=== PATIENT | female | born 1950 | race Caucasian/White ===

== ENCOUNTER → 2024-08-18 | Outpatient (CLI) | payer MEDICARE, SELFPAY ==
--- NOTE | 2024-08-18 10:30 | XR_ITS ---
Examination: Screening digital mammography, bilateral Computer aided detection 3-D breast Tomosynthesis, bilateral Date and time of exam: August 18, 2024 1010 hours Compared to mammograms dating to September 04, 2019 Indication: Screening Technique: Nonmagnified MLO, CC views of the breasts to been obtained, reconstructed from 3-D Tomosynthesis images. R2 computer aided detection program utilized for evaluation of suspicious masses and/or abnormal calcifications. 3-D Tomosynthesis images obtained. Findings: Scattered areas of fibroglandular density. Extensive scar formation surgical clips and calcifications stable left breast consistent with patient's history treated left breast cancer However, calcifications adjacent to the surgical clips in the upper outer left breast appear more numerous compared to 2020 Impression: BI-RADS Category 0: Incomplete: Need additional imaging evaluation Recommend follow-up magnification spot compression views of microcalcifications upper outer left breast as well as left breast sonography to complete the workup
[2024-08-18 10:47] LABS: Basophils # (Auto) 0.1 Thou/mm3 (0.0-0.2); Basophils % (Auto) 1 % (0-2.5); Eosinophils # (Auto) 0.2 Thou/mm3 (0.0-0.5); Eosinophils % (Auto) 3 % (0-10); Hematocrit 40.2 % (36.0-46.0); Hemoglobin 13.3 g/dL (12.0-16.0); Immature Granulocytes % (Auto) 1 % (0-0); Immature Granulocytes Auto 0.04 Thou/mm3 (0.00-0.00); Lymphocytes # (Auto) 1.6 Thou/mm3 (1.0-4.8); Lymphocytes % (Auto) 24 % (10-50); Mean Corpuscular HGB Conc 33.1 g/dl (31.0-37.0); Mean Corpuscular Hemoglobin 30.9 pg (25.0-35.0); Mean Corpuscular Volume 94 fL (80-100); Monocytes # (Auto) 0.5 Thou/mm3 (0.0-0.8); Monocytes % (Auto) 7 % (0-12); Neutrophils # (Auto) 4.3 Thou/mm3 (1.8-7.7); Neutrophils % (Auto) 65 % (37-80); Nucleated Red Blood Cell % 0 /100 WBC (0); Platelet Count 264 Thou/mm3 (140-440); RDW Standard Deviation 44.7 fL (36.4-46.3); White Blood Count 6.7 Thou/mm3 (3.6-11.0)
[2024-08-18 11:00] LABS: Alanine Aminotransferase 15 U/L (10-49); Albumin, Serum 4.3 gm/dL (3.4-4.8); Albumin/Globulin Ratio 1.9 (1.2-2.2); Alkaline Phosphatase 59 U/L (46-116); Anion Gap 5 (7-16); Aspartate Amino Transferase 17 U/L (0-34); BUN/Creatinine Ratio 11 Ratio (12-20); Bilirubin,Total 0.7 mg/dL (0.3-1.2); Blood Urea Nitrogen 11 mg/dL (9-23); Calcium 10.4 mg/dL (8.3-10.6); Calcium (Corrected) 10.4 mg/dL (8.5-10.1); Carbon Dioxide 31.6 mMol/L (20.0-31.0); Chloride 105 mMol/L (98-107); Globulin 2.3 gm/dL (2.3-3.5); Glucose 105 mg/dL (74-106); Osmolality,Calculated 282 (275-295); Potassium 4.5 mMol/L (3.4-5.1); Sodium 142 mMol/L (136-145); Total Protein 6.6 gm/dL (5.7-8.2); eGFR 59 See Note
[2024-08-18 11:23] LABS: CA 15-3 7.1 U/mL (<32.4); Carcinoembryonic Antigen 2.6 ng/mL (0.0-5.0)
== END | disposition home or self-care (01) ==
LOC: CDIM 10:06 → COPL 10:18
PROVIDERS: Referring Provider Nurse Practitioner Family; Visit Provider Specialist
DX: Z12.31 Encounter for screening mammogram for malignant neoplasm of breast (principal); R92.8 Other abnormal and inconclusive findings on diagnostic imaging of breast; C50.412 Malignant neoplasm of upper-outer quadrant of left female breast
CPT/HCPCS: 36415; 77063; 77067; 80053; 82378; 85025; 86300

== ENCOUNTER → 2024-08-19 | Outpatient (CLI) | payer MEDICARE, SELFPAY ==
--- NOTE | 2024-08-19 13:08 | XR_ITS ---
Examination: Diagnostic digital mammography, unilateral, left Computer aided detection 3-D breast Tomosynthesis, unilateral Date and time of exam: August 19, 2024 1334 hours INDICATIONS: Mammogram August 18, 2024 grouped microcalcifications upper outer left breast Technique: Nonmagnified MLO, CC views of the left breast have been obtained, reconstructed from 3-D Tomosynthesis images. R2 computer aided detection program utilized for evaluation of suspicious masses and/or abnormal calcifications. 3-D Tomosynthesis images obtained. Findings: Scattered areas of fibroglandular density Probably benign calcifications upper outer left breast adjacent to surgical clips Impression: BI-RADS category 3: Probably benign findings One additional 6 month left mammogram follow-up is needed to document stability of calcifications described above
--- NOTE | 2024-08-19 13:08 | XR_ITS ---
Examination: Breast ultrasound, unilateral, left complete Date and time of exam: August 19, 2024 1421 hours INDICATIONS: Personal history left breast cancer with lumpectomy 2018, mammogram August 18, 2024 extensive scar formation left breast Technique: Real-time brandt scale ultrasonographic imaging performed left breast including all 4 quadrants as well as nipple retroareolar and axillary region. Findings: 12:00 oval mass circumscribed 8 x 3 x 8 mm 12:00 oval mass circumscribed 8 x 3 x 6 mm Retroareolar cyst 11 x 8 x 10 mm Retroareolar oval mass circumscribed 9 x 4 x 7 mm IMPRESSION: Multiple solid nodules as above, BI-RADS Category 3, recommend 1 additional 6 month left breast sonogram follow-up to document stability of these nodules
== END | disposition home or self-care (01) ==
LOC: CDIM 12:39
PROVIDERS: PCP Specialist; Referring Provider Specialist; Visit Provider Specialist
DX: R92.332 Mammographic heterogeneous density, left breast (principal); R92.1 Mammographic calcification found on diagnostic imaging of breast; N63.25 Unspecified lump in the left breast, overlapping quadrants; N63.42 Unspecified lump in left breast, subareolar; N60.02 Solitary cyst of left breast
CPT/HCPCS: 76641; 77061; 77065; G0279

== ENCOUNTER 2024-08-25 13:25 | Outpatient (RCR) | payer MEDICARE, SELFPAY | END 2024-09-23 23:59 | disposition home or self-care (01) | LOC: SCTC 13:25 | PROVIDERS: PCP Specialist; Referring Provider Specialist; Visit Provider Nurse Practitioner Family | DX: D05.12 Intraductal carcinoma in situ of left breast (principal); Z17.0 Estrogen receptor positive status [ER+]; Z17.21 Progesterone receptor positive status; Z90.12 Acquired absence of left breast and nipple; Z79.811 Long term (current) use of aromatase inhibitors; M85.88 Other specified disorders of bone density and structure, other site | CPT/HCPCS: 99212; G0463 ==

== ENCOUNTER 2024-09-29 08:55 | Day surgery (SDC) | payer MEDICARE, SELFPAY ==
[2024-09-29] VITALS (11 sets, daily range): BP systolic 107–164; BP diastolic 69–110; PULSE 66–84; RESP 10–19; TEMP 36.4–37.1; O2SAT 95–100; BMI 33.8
[2024-09-29] MEDS: SODIUM CHLORIDE 0.9% 500 ML 500 ML 20 ML IV (10:15)
[2024-09-29] MEDS: Ampicillin Inj 2,000 MG in SODIUM CHLORIDE 0.9% (P) 100 ML 100 MG IV (10:20)
[2024-09-29] MEDS: GENTAMICIN/NS 80 MG IVPB 80 MG/50 ML PIGGYBACK 49.02 MG IV (11:00)
[2024-09-29] MEDS: DiphenhydrAMINE INJ 50 MG/ML VIAL 25 MG IV (12:03)
[2024-09-29] MEDS: ONDANSETRON INJ 2 MG/ML INJ 2 ML 4 MG IV (12:04)
[2024-09-29] MEDS: fentaNYL CIT INJ 50 mCg/ML AMP 2ML (ASD USE ONLY) IV (12:12)
[2024-09-29] MEDS: MIDAZOLAM INJ 1 MG/ML VIAL 2 ML (ASD USE ONLY) 2 MG IV (12:12)
== END 2024-09-29 13:30 | disposition home or self-care (01) ==
PROVIDERS: PCP Specialist; Referring Provider Specialist; Visit Provider Specialist
PROC: 0DBE8ZX Excision of Large Intestine, Via Natural or Artificial Opening Endoscopic, Diagnostic (ICD-10-PCS; CPT 45380; principal; 2024-09-29 11:15)
DX: K55.21 Angiodysplasia of colon with hemorrhage (principal); K57.30 Diverticulosis of large intestine without perforation or abscess without bleeding; K64.8 Other hemorrhoids
CPT/HCPCS: 45378; A4649; J0290; J1200; J1580; J2250; J2405; J3010; J7040; J7050

== ENCOUNTER → 2024-11-25 | Outpatient (CLI) | payer MEDICARE, SELFPAY ==
[2024-11-25 16:37] LABS: Glucose Estimated Average 126 mg/dL (80-131)
[2024-11-25 16:40] LABS: Alanine Aminotransferase 20 U/L (10-49); Albumin, Serum 4.2 gm/dL (3.4-4.8); Albumin/Globulin Ratio 1.8 (1.2-2.2); Alkaline Phosphatase 62 U/L (46-116); Anion Gap 9 (7-16); Aspartate Amino Transferase 19 U/L (0-34); BUN/Creatinine Ratio 16 Ratio (12-20); Bilirubin,Total 0.4 mg/dL (0.3-1.2); Blood Urea Nitrogen 14 mg/dL (9-23); Calcium 9.8 mg/dL (8.3-10.6); Calcium (Corrected) 9.8 mg/dL (8.5-10.1); Carbon Dioxide 28.8 mMol/L (20.0-31.0); Cardiac Risk Estimate 3.7 RATIO (3.7-5.6); Chloride 105 mMol/L (98-107); Cholesterol 162 mg/dL (132-200); Creatinine (Component) 0.9 mg/dL (0.6-1.3); Globulin 2.4 gm/dL (2.3-3.5); Glucose 115 mg/dL (74-106); HDL Cholesterol 44 mg/dL (40-60); LDL Cholesterol,Calculated 74 mg/dL (0-130); Osmolality,Calculated 286 (275-295); Potassium 4.5 mMol/L (3.4-5.1); Sodium 143 mMol/L (136-145); Total Protein 6.6 gm/dL (5.7-8.2); Triglycerides 222 mg/dL (30-150); eGFR > 60 See Note
[2024-11-25 17:27] LABS: Creatinine MALB Rnd Ur 22 mg/dL (30-125); Microalbumin, Random Urine < 3 mg/L (0-300)
== END | disposition home or self-care (01) ==
LOC: COPL 14:57
PROVIDERS: PCP Specialist; Referring Provider Specialist; Visit Provider Specialist
DX: E11.69 Type 2 diabetes mellitus with other specified complication (principal)
CPT/HCPCS: 36415; 80053; 80061; 82043; 82570; 83036

== ENCOUNTER → 2025-02-18 | Outpatient (CLI) | payer MEDICARE, SELFPAY ==
--- NOTE | 2025-02-18 08:45 | XR_ITS ---
Examination: Breast ultrasound, unilateral, left complete Date and time of exam: February 18, 2025 0901 hours INDICATIONS: Left breast sonogram August 19, 2024 left breast 12:00 nodule 8 mm 12:00 nodule 8 mm retroareolar nodule 9 mm Technique: Real-time brandt scale ultrasonographic imaging performed left breast including all 4 quadrants as well as nipple retroareolar and axillary region. Findings: 12:00 nodule circumscribed 8 x 7 mm 12:00 nodule circumscribed 7 x 5 mm Retroareolar nodule lobular margins 9 x 8 mm Retroareolar nodule 10 x 8 mm circumscribed IMPRESSION: BI-RADS Category 3: Probably benign findings One additional 6 month left breast sonogram follow-up is needed to document stability of solid nodules described above
--- NOTE | 2025-02-18 09:15 | XR_ITS ---
Examination: Diagnostic digital mammography, unilateral, LEFT Computer aided detection 3-D breast Tomosynthesis, unilateral Date and time of exam: February 10, 2025 0913 hours INDICATIONS: Mammogram August 18, 2024 grouped microcalcifications upper outer left breast Technique: Nonmagnified MLO, CC views of the left breast have been obtained, reconstructed from 3-D Tomosynthesis images. R2 computer aided detection program utilized for evaluation of suspicious masses and/or abnormal calcifications. 3-D Tomosynthesis images obtained. Findings: Scattered areas of fibroglandular density Stable calcifications upper outer left breast with architectural distortion and surgical clips Impression: BI-RADS category 2: Benign findings Recommend yearly follow-up mammography
[2025-02-18 10:28] LABS: Basophils # (Auto) 0.1 Thou/mm3 (0.0-0.2); Basophils % (Auto) 1 % (0-2.5); Eosinophils # (Auto) 0.2 Thou/mm3 (0.0-0.5); Eosinophils % (Auto) 3 % (0-10); Hematocrit 39.4 % (36.0-46.0); Immature Granulocytes % (Auto) 0 % (0-0); Immature Granulocytes Auto 0.03 Thou/mm3 (0.00-0.00); Lymphocytes # (Auto) 1.6 Thou/mm3 (1.0-4.8); Lymphocytes % (Auto) 24 % (10-50); Mean Corpuscular Hemoglobin 29.7 pg (25.0-35.0); Mean Corpuscular Volume 90 fL (80-100); Monocytes # (Auto) 0.6 Thou/mm3 (0.0-0.8); Monocytes % (Auto) 9 % (0-12); Neutrophils # (Auto) 4.3 Thou/mm3 (1.8-7.7); Neutrophils % (Auto) 63 % (37-80); Nucleated Red Blood Cell % 0 /100 WBC (0); Platelet Count 255 Thou/mm3 (140-440); RDW Standard Deviation 43.9 fL (36.4-46.3); Red Blood Count 4.37 Miln/mm3 (4.00-5.20); White Blood Count 6.9 Thou/mm3 (3.6-11.0)
[2025-02-18 10:46] LABS: Alanine Aminotransferase 12 U/L (10-49); Albumin, Serum 4.2 gm/dL (3.4-4.8); Albumin/Globulin Ratio 1.8 (1.2-2.2); Alkaline Phosphatase 58 U/L (46-116); Anion Gap 11 (7-16); Aspartate Amino Transferase 18 U/L (0-34); BUN/Creatinine Ratio 10 Ratio (12-20); Bilirubin,Total 0.4 mg/dL (0.3-1.2); Blood Urea Nitrogen 10 mg/dL (9-23); Calcium 9.2 mg/dL (8.3-10.6); Calcium (Corrected) 9.2 mg/dL (8.5-10.1); Carbon Dioxide 28.3 mMol/L (20.0-31.0); Chloride 104 mMol/L (98-107); Globulin 2.3 gm/dL (2.3-3.5); Glucose 131 mg/dL (74-106); Osmolality,Calculated 285 (275-295); Potassium 4.6 mMol/L (3.4-5.1); Sodium 143 mMol/L (136-145); Total Protein 6.5 gm/dL (5.7-8.2); eGFR 59 See Note
[2025-02-18 10:55] LABS: CA 15-3 5.1 U/mL (<32.4)
== END | disposition home or self-care (01) ==
LOC: CDIM 08:40 → SCTO 09:23
PROVIDERS: PCP Specialist; Referring Provider Nurse Practitioner Family; Visit Provider Radiology Diagnostic Radiology
DX: R92.8 Other abnormal and inconclusive findings on diagnostic imaging of breast (principal); R92.322 Mammographic fibroglandular density, left breast; C50.412 Malignant neoplasm of upper-outer quadrant of left female breast
CPT/HCPCS: 36415; 76641; 77061; 77065; 80053; 82378; 85025; 86300; G0279

== ENCOUNTER 2025-03-25 09:43 | Outpatient (RCR) | payer MEDICARE, SELFPAY | END 2025-04-23 23:59 | disposition home or self-care (01) | LOC: SCTC 09:43 | PROVIDERS: PCP Specialist; Referring Provider Specialist; Visit Provider Nurse Practitioner Family | DX: Z09 Encounter for follow-up examination after completed treatment for conditions other than malignant neoplasm (principal); Z86.000 Personal history of in-situ neoplasm of breast; Z90.12 Acquired absence of left breast and nipple; Z92.3 Personal history of irradiation; M85.88 Other specified disorders of bone density and structure, other site | CPT/HCPCS: 99212; G0463 ==

== ENCOUNTER → 2025-04-15 | Outpatient (CLI) | payer MEDICARE, SELFPAY ==
[2025-04-15 12:15] LABS: Glucose Estimated Average 143 mg/dL (80-131); Hemoglobin A1C 6.6 % Hgb (4.8-6.0)
[2025-04-15 12:19] LABS: Alanine Aminotransferase 15 U/L (10-49); Albumin, Serum 4.1 gm/dL (3.4-4.8); Anion Gap 9 (7-16); Aspartate Amino Transferase 21 U/L (0-34); BUN/Creatinine Ratio 9 Ratio (12-20); Bilirubin,Total 0.5 mg/dL (0.3-1.2); Blood Urea Nitrogen 9 mg/dL (9-23); Calcium 9.2 mg/dL (8.3-10.6); Calcium (Corrected) 9.2 mg/dL (8.5-10.1); Carbon Dioxide 28.3 mMol/L (20.0-31.0); Chloride 105 mMol/L (98-107); Creatinine (Component) 1.0 mg/dL (0.6-1.3); Globulin 2.6 gm/dL (2.3-3.5); Glucose 207 mg/dL (74-106); Osmolality,Calculated 287 (275-295); Potassium 4.1 mMol/L (3.4-5.1); Sodium 142 mMol/L (136-145); Total Protein 6.7 gm/dL (5.7-8.2); eGFR 59 See Note
[2025-04-15 12:20] LABS: Albumin/Globulin Ratio 1.6 (1.2-2.2); Alkaline Phosphatase 56 U/L (46-116); Cardiac Risk Estimate 4.2 RATIO (3.7-5.6); Cholesterol 175 mg/dL (132-200); HDL Cholesterol 42 mg/dL (40-60); LDL Cholesterol,Calculated 96 mg/dL (0-130); Triglycerides 186 mg/dL (30-150)
[2025-04-15 17:50] LABS: Creatinine MALB Rnd Ur 124 mg/dL (30-125); Microalbumin Creat Ratio 4 mg/gCrea (<30); Microalbumin, Random Urine 5 mg/L (0-300)
== END | disposition home or self-care (01) ==
LOC: COPL 11:09
PROVIDERS: PCP Specialist; Referring Provider Specialist; Visit Provider Specialist
DX: E11.65 Type 2 diabetes mellitus with hyperglycemia (principal); E78.2 Mixed hyperlipidemia
CPT/HCPCS: 36415; 80053; 80061; 82043; 82570; 83036

== ENCOUNTER 2025-08-07 09:54 | Emergency (ER) | payer MEDICARE, SELFPAY ==
[2025-08-07 09:58] VITALS: BP 145/85; PULSE 95; RESP 18; TEMP 36.6; O2SAT 98; BMI 34.2
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
[2025-08-07 12:05] VITALS: BP 124/84; PULSE 78
== END 2025-08-07 12:05 | disposition home or self-care (01) ==
PROVIDERS: Emergency Provider Family Medicine
DX: S50.11XA Contusion of right forearm, initial encounter (principal); Y92.410 Unspecified street and highway as the place of occurrence of the external cause; V89.2XXA Person injured in unspecified motor-vehicle accident, traffic, initial encounter; S80.01XA Contusion of right knee, initial encounter
CPT/HCPCS: 70450; 72125; 73090; 73562; 99282

== ENCOUNTER → 2025-09-01 | Outpatient (CLI) | payer MEDICARE, SELFPAY ==
[2025-09-01 13:31] LABS: Basophils # (Auto) 0.1 Thou/mm3 (0.0-0.2); Basophils % (Auto) 1 % (0-2.5); Eosinophils # (Auto) 0.3 Thou/mm3 (0.0-0.5); Eosinophils % (Auto) 4 % (0-10); Hematocrit 40.1 % (36.0-46.0); Hemoglobin 12.6 g/dL (12.0-16.0); Immature Granulocytes Auto 0.07 Thou/mm3 (0.00-0.00); Lymphocytes # (Auto) 1.9 Thou/mm3 (1.0-4.8); Lymphocytes % (Auto) 24 % (10-50); Mean Corpuscular HGB Conc 31.4 g/dl (31.0-37.0); Mean Corpuscular Hemoglobin 29.0 pg (25.0-35.0); Mean Corpuscular Volume 92 fL (80-100); Monocytes # (Auto) 0.6 Thou/mm3 (0.0-0.8); Monocytes % (Auto) 8 % (0-12); Neutrophils # (Auto) 4.9 Thou/mm3 (1.8-7.7); Neutrophils % (Auto) 63 % (37-80); Nucleated Red Blood Cell # 0.00 Thou/mm3 (0.00-0.00); Nucleated Red Blood Cell % 0 /100 WBC (0); Platelet Count 279 Thou/mm3 (140-440); RDW Standard Deviation 46.4 fL (36.4-46.3); Red Blood Count 4.34 Miln/mm3 (4.00-5.20); White Blood Count 7.7 Thou/mm3 (3.6-11.0)
[2025-09-01 13:38] LABS: Glucose Estimated Average 148 mg/dL (80-131); Hemoglobin A1C 6.8 % Hgb (4.8-6.0)
[2025-09-01 13:40] LABS: Creatinine MALB Rnd Ur 108 mg/dL (30-125); Microalbumin Creat Ratio 6 mg/gCrea (<30); Microalbumin, Random Urine 6 mg/L (0-300)
[2025-09-01 13:45] LABS: Alanine Aminotransferase 16 U/L (10-49); Albumin, Serum 4.4 gm/dL (3.4-4.8); Albumin/Globulin Ratio 1.6 (1.2-2.2); Alkaline Phosphatase 60 U/L (46-116); Anion Gap 7 (7-16); Aspartate Amino Transferase 21 U/L (0-34); BUN/Creatinine Ratio 10 Ratio (12-20); Bilirubin,Total 0.4 mg/dL (0.3-1.2); Blood Urea Nitrogen 9 mg/dL (9-23); Calcium 9.3 mg/dL (8.3-10.6); Calcium (Corrected) 9.3 mg/dL (8.5-10.1); Carbon Dioxide 30.2 mMol/L (20.0-31.0); Cardiac Risk Estimate 3.9 RATIO (3.7-5.6); Chloride 105 mMol/L (98-107); Cholesterol 184 mg/dL (132-200); Creatinine (Component) 0.9 mg/dL (0.6-1.3); Globulin 2.7 gm/dL (2.3-3.5); Glucose 169 mg/dL (74-106); HDL Cholesterol 47 mg/dL (40-60); LDL Cholesterol,Calculated 104 mg/dL (0-130); Osmolality,Calculated 285 (275-295); Potassium 4.6 mMol/L (3.4-5.1); Sodium 142 mMol/L (136-145); Thyroid Stimulating Hormone 0.74 uIU/mL (0.55-4.78); Total Protein 7.1 gm/dL (5.7-8.2); Triglycerides 167 mg/dL (30-150); eGFR > 60 See Note
== END | disposition home or self-care (01) ==
LOC: COPL 11:29
PROVIDERS: PCP Specialist; Referring Provider Specialist; Visit Provider Specialist
DX: E11.22 Type 2 diabetes mellitus with diabetic chronic kidney disease (principal); N18.9 Chronic kidney disease, unspecified; D63.1 Anemia in chronic kidney disease; E11.65 Type 2 diabetes mellitus with hyperglycemia; E78.2 Mixed hyperlipidemia
CPT/HCPCS: 36415; 80053; 80061; 82043; 82570; 83036; 84443; 85025